=== PATIENT | male | born 1990 ===

== ENCOUNTER 2017-07-03 12:47 | Emergency (ER) | payer SELFPAY ==
[2017-07-03 12:59] VITALS: BMI 28.1
[2017-07-03 13:03] VITALS: RESP 18; TEMP 97.9; O2SAT 99
[2017-07-03] MEDS ORDERED: Silver Nitrate Topical - Stick ONE (13:20)
[2017-07-03 14:00] VITALS: BP 145/97; PULSE 75
--- NOTE | 2017-07-03 18:21 | C.PDOC ---
History Of Present Illness 27 year old male presents to the ED for evaluation of an avulsion sustained to left second finger earlier today. Patient states he was cutting something when his knife slipped. Patient controlled his bleeding by applying pressure. Patient states he is right hand dominant and notes he is not up to date with Tetanus immunization. Patient denies extremity numbness/weakness. Chief Complaint (Nursing): Abnormal Skin Integrity History Per: Patient History/Exam Limitations: no limitations Onset/Duration Of Symptoms: Hrs Current Symptoms Are (Timing): Still Present Location Of Injury: Left: Hand (second finger ) Additional History Per: Patient Past Medical History Reviewed: Historical Data, Nursing Documentation, Vital Signs Vital Signs: Last Vital Signs Temp 97.9 F 07/03/17 12:59 Pulse 75 07/03/17 13:58 Resp 18 07/03/17 13:58 BP 145/97 H 07/03/17 13:58 Pulse Ox 99 07/03/17 18:24 - Medical History PMH: No Chronic Diseases Surgical History: No Surg Hx Family History: States: Unknown Family Hx - Social History Hx Alcohol Use: No Hx Substance Use: No - Immunization History Hx Tetanus Toxoid Vaccination: Yes Hx Influenza Vaccination: Yes Hx Pneumococcal Vaccination: No Review Of Systems Skin: Positive for: Other (left second finger avulsion ) Neurological: Negative for: Weakness, Numbness Physical Exam - Physical Exam Appears: Non-toxic, No Acute Distress Skin: Normal Color, Warm, Dry, Other (avulsion to distal aspect of left 2nd finger with active bleeding ) Extremity: Normal ROM, No Tenderness, Capillary Refill (less than 2 seconds ), No Deformity, No Swelling Neurological/Psych: Oriented x3, Normal Speech, Normal Cognition ED Course And Treatment O2 Sat by Pulse Oximetry: 99 (on RA) Pulse Ox Interpretation: Normal Medical Decision Making Medical Decision Making: Progress: Tetanus IM administered. chemical cautery performed. area was wrapped. Patient is advised to f/u with PMD hand surgery tomorrow for further evaluation. Disposition - Disposition Referrals: Pepper Wesley MD [Staff Provider] - Disposition: HOME/ ROUTINE Disposition Time: 13:20 Condition: GOOD Additional Instructions: Thank you for letting us take care of you today. The emergency medical care you received today was directed at your acute symptoms. If you were prescribed any medication, please fill it and take as directed. It may take several days for your symptoms to resolve. Return to the Emergency Department if your symptoms worsen, do not improve, or if you have any other problems. Please contact your doctor or call one of the physicians/clinics you have been referred to that are listed on the Patient Visit Information form that is included in your discharge packet. Bring any paperwork you were given at discharge with you along with any medications you are taking to your follow up visit. Our treatment cannot replace ongoing medical care by a primary care provider (PCP) outside of the emergency department. Thank you for allowing the [facility] team to be part of your care today. Follow up with Dr. Wesley (hand doctor) tomorrow for re-evaluation and further management. Prescriptions: Cephalexin [cephalexin] 500 mg PO Q6 #28 cap Instructions: Skin Avulsion (ED) Forms: [employer] ([place]) - Clinical Impression Clinical Impression: Finger avulsion - Scribe Statement The provider has reviewed the documentation as recorded by the Scribe (Marti Escudero) Provider Attestation: All medical record entries made by the Scribe were at my direction and personally dictated by me. I have reviewed the chart and agree that the record accurately reflects my personal performance of the history, physical exam, medical decision making, and the department course for this patient. I have also personally directed, reviewed, and agree with the discharge instructions and disposition.
== END 2017-07-03 14:00 | disposition home or self-care (01) ==
LOC: C.ER 12:47
DX: S61.301A Unspecified open wound of left index finger with damage to nail, initial encounter (principal); W26.0XXA Contact with knife, initial encounter; Y92.89 Other specified places as the place of occurrence of the external cause; Z23 Encounter for immunization